=== PATIENT | male | born 2000 | race Caucasian/White ===

== ENCOUNTER 2019-11-05 16:00 | Emergency (ER) | payer BC, SELFPAY ==
[2019-11-05 16:10] VITALS: BP 123/76; PULSE 49; RESP 20; TEMP 36.6; O2SAT 100
--- NOTE | 2019-11-05 16:28 | ED.EAR ---
HPI - Ear Problem General Chief complaint: Ear Stated complaint: ringing in ear/clogged feeling Time Seen by Provider: 11/05/19 16:28 Source: patient and RN notes reviewed Mode of arrival: ambulatory Limitations: no limitations History of Present Illness HPI Narrative: 19 year old male who presents to main [facility] care with complaints of bilateral ears feeling full with decrease in hearing. Patient states that he just returned a few days ago from vacation in [place] where he swam a lot in the ocean. Patient states some discomfort in his right ear and ringing, denies any drainage from his ears. Patient states that he has tried some OTC ear drops with no resolution in his symptoms. MD Complaint: decreased hearing and other (ringing in his right ear) Location: bilateral Duration: constant Severity: mild Relieving factors: nothing Exacerbating factors: nothing Context: Reports recent swimming and other (vacation in [place]) Discharge from ear: Reports no Associated symptoms ear: decreased hearing Treatment prior to arrival: eardrops Related Data Allergies Allergy/AdvReac Type Severity Reaction Status Date / Time No Known Allergies Allergy Verified 11/05/19 16:16 Review of Systems Review of Systems: Narrative: CONSTITUTIONAL: Denies fever, chills, or sweats. EYES: Denies visual changes, redness, or discharge. ENT: Denies rhinorrhea, congestion, sore throat, positive for right ear pain and ringing and fullness, some fullness left ear no pain. CARDIOVASCULAR: Denies chest pain, palpitations, or edema. RESPIRATORY: Denies cough or dyspnea. GASTROINTESTINAL: Denies abdominal pain, nausea, vomiting, or diarrhea. GENITOURINARY: Denies dysuria or hematuria. SKIN: Denies rash or itching. MUSCULOSKELETAL: Denies back pain, joint pain, or myalgia. NEUROLOGIC: Denies headache, numbness, or weakness. PSYCHIATRIC: Denies anxiety or depression. All systems reviewed & are unremarkable except as noted in HPI and below PMFSH Past Medical History Medical History (Updated 11/06/19 @ 10:18 by Adriana Clark NP) Fractured nose Surgical History Surgical History (Updated 11/06/19 @ 10:20 by Adriana Clark NP) History of nasal surgery Hx of tonsillectomy Social History Social History (Updated 11/05/19 @ 16:49 by Adriana L. Amber, RELIABILITY ENGINEER) Smoking status: Never smoker Living arrangements: with roommate(s) Occupation/Education: student Gender identity (if verbalized by the patient): Male Comments At time of signature, agree with nursing past medical, surgical, social and family history. There is no relevant family history pertinent to the presenting complaint Exam Narrative: Exam Narrative: GENERAL: Well-appearing, well-nourished, and in no acute distress. HEAD: Normocephalic, atraumatic. EYES: PERRLA and EOMI. ENT: Nares clear, no rhinorrhea or epistaxis. Mucous membranes moist.Unable to visualize ear canals due to cerumen, ears washed using elephant and peroxide/water solution with moderate amount of soft wax obtained from bilateral ears,redness to ear canal right ear. TM's normal with good light reflex,throat pink with no lesions or tonsil enlargement. NECK: Supple.no lymphadenopathy CHEST: Clear to auscultation. No respiratory distress.SAO2 100% on room air HEART: Regular rate and rhythm. No murmur heard. Normal peripheral pulses. ABDOMEN: Soft, nontender, nondistended, normal active bowel sounds. EXTREMITIES: Normal range of motion. No edema. SKIN: Warm, dry, no rash. NEURO: No focal deficits. Alert and oriented x3. Course Vital Signs Vital signs: Vital Signs Temperature 36.6 C 11/05/19 16:10 Pulse Rate 49 L 11/05/19 16:10 Respiratory Rate 11/05/19 16:10 Blood Pressure 123/76 11/05/19 16:10 Pulse Oximetry 100 11/05/19 16:10 Temperature 36.6 C 11/05/19 16:10 Pulse Rate 49 L 11/05/19 16:10 Respiratory Rate 11/05/19 16:10 Blood Pressure 123/76 11/05/19 16:10 Pulse Oximetry 100
== END 2019-11-05 16:57 | disposition home or self-care (01) ==
PROVIDERS: Emergency Provider Registered Nurse
DX: H61.23 Impacted cerumen, bilateral (principal); H60.501 Unspecified acute noninfective otitis externa, right ear
CPT/HCPCS: 69209; 99213; A9270; G0463

== ENCOUNTER 2022-02-22 12:39 | Emergency (ER) | payer BC, SELFPAY ==
--- NOTE | 2022-02-22 12:42 | ED.URI ---
HPI - URI/Sore Throat General Chief Complaint: Upper Respiratory Infection Stated Complaint: Cough Time Seen by Provider: 02/22/22 12:42 Source: patient and RN notes reviewed History of Present Illness HPI Narrative: Patient is a 21-year-old male who presents to the Urgent Care with complaints of cough, sinus pressure and congestion for the last 2 weeks. Patient states he has had a sinuplasty which did treat most of his issues with sinusitis however he does have a strong history of ENT issues. Patient has not been on antibiotics for sinusitis and a very long time. Denies any recent fevers, nausea or vomiting. Patient has been using his fluticasone but otherwise nothing [id number]. No other acute complaints. No acute distress noted. Patient aware of the plan of care. Some parts of this dictation were generated by voice recognition software and may contain typographical and/or grammatical inaccuracies. Related Data Home Medications Medication Instructions Recorded Confirmed lisdexamfetamine 30 mg capsule 30 mg PO DAILY 02/22/22 02/22/22 (Vyvanse) Allergies Allergy/AdvReac Type Severity Reaction Status Date / Time No Known Allergies Allergy Verified 11/05/19 16:16 Review of Systems Review of Systems: CONSTITUTIONAL: Denies fever, chills, or sweats. EYES: Denies visual changes, redness, or discharge. ENT: Reports postnasal drainage, sinus congestion, sinus pressure CARDIOVASCULAR: Denies chest pain, palpitations, or edema. RESPIRATORY: reports of cough without dyspnea GASTROINTESTINAL: Denies abdominal pain, nausea, vomiting, or diarrhea. GENITOURINARY: Denies dysuria or hematuria. SKIN: Denies rash or itching. MUSCULOSKELETAL: Denies back pain, joint pain, or myalgia. NEUROLOGIC: Denies headache, numbness, or weakness. All other systems reviewed are negative, except as documented in HPI. [facility] Past Medical History Medical History (Updated 02/22/22 @ 12:59 by SEPIDEH Castillo) Fractured nose Surgical History Surgical History (Updated 02/22/22 @ 12:59 by SEPIDEH Castillo) History of nasal surgery Hx of tonsillectomy Social History Social History (Updated 11/05/19 @ 16:49 by Adriana Clark NP) Smoking status: Never smoker Gender identity (if verbalized by the patient): Male Comments At the time of my signature, I reviewed and agree with the nursing past medical, surgical, social, and family history. There is no relevant family history pertinent to the patient complaint. Exam Narrative: GENERAL: This is a well-nourished, well-developed patient, in no apparent distress. HEAD: normocephalic, atraumatic. frontal sinus tenderness EYES: PERRL. Sclera clear/white. Vision is grossly intact. EARS: External ears normal, auditory canals clear and without drainage, TMs normal without perforation. Hearing grossly intact. NOSE: External nose normal with no obvious nasal discharge. Bilateral erythema nares with clear yellow rhinorrhea THROAT: Mucous membranes moist, moderate postnasal drainage NECK: Neck supple, non-tender without lymphadenopathy CARDIOVASCULAR: Regular rate and rhythm without murmurs, gallops, or rubs. RESPIRATORY: Clear to auscultation. Breath sounds equal bilaterally. No wheezes, rales, or rhonchi. SKIN: warm, intact with no suspicious lesions or rash, good texture and turgor. NEURO: awake, alert, and oriented to person, place and time. There were no obvious focal neurologic abnormalities. EXTREMITIES: No clubbing, cyanosis, or edema. Course Course Level of Care: Express Care Visit Vital Signs Vital signs: Vital Signs Temperature 98.2 F 02/22/22 12:48 Pulse Rate 55 L 02/22/22 12:48 Respiratory Rate 16 02/22/22 12:48 Blood Pressure 139/74 02/22/22 12:48 Pulse Oximetry 100 02/22/22 12:48 Oxygen Delivery Room Air 02/22/22 12:48 Temperature 98.2 F 02/22/22 12:48 Pulse Rate 55 L 02/22/22 12:48 Respiratory Rate 16
[2022-02-22 12:48] VITALS: BP 139/74; PULSE 55; RESP 16; TEMP 36.8; O2SAT 100
== END 2022-02-22 13:00 | disposition home or self-care (01) ==
PROVIDERS: Emergency Provider Nurse Practitioner Family
DX: J32.9 Chronic sinusitis, unspecified (principal)
CPT/HCPCS: 99213; G0463

== ENCOUNTER 2025-01-19 09:53 | Emergency (ER) | payer BC, SELFPAY ==
[2025-01-19 10:06] VITALS: BP 151/88; PULSE 74; RESP 18; TEMP 36.9; O2SAT 100
--- OUTSIDE RECORDS SUMMARY | 2025-01-19 11:03 | XMS_ITS | Encounter Summary ---
Author Organization [facility] Address [address] [place] [address] Phone Care Team Providers Care Mrp Controller Name Role Phone Alexander Vicente MD Primary Care Provider [phone] Alexander Vicente MD Unavailable [phone] Jagruti Mattson APRN, ELECTRONIC PUBLISHING SPECIALIST Unavailable [phone] Reason for Visit * Reason Onset Date Comments Prior Authorization 07/03/2024 Auth Denied- P2P offeredOrdering Provider: InternalIf external office contacted, phone number called: Spoke to: Appointment Info:Clinic: [facility] Provider: [facility] Appt Date/Time: Saturday 7:30 PM Payor + Plan: [place] [facility] PPOCPT/Test: 16701 / [id number] denied through: [employer] Reason for denial: Add'l Steps Taken (Pt Notified, Reached out to Provider, et Encounter Details Date Type Department Care Team (Late st Contact Info) Description 07/03/2024 Telephone [facility] Outpatient [address] [place] [address] Boogie Monique, NILAM, ELECTRONIC PUBLISHING SPECIALIST #[address] [address] Prior Authorization (Auth Denied-P2P offered//Ordering Provider: Internal/If external office contacted, phone number called: /Spoke to: //Appointment Info:/Clinic: [facility] /Provider: [facility] Appt Date/Time: Saturday 7:30 PM/ / //[place] + [place]//CPT/Test: 49048 / 36041/Authorization denied through: [employer]ILITY //Reason for denial: //Add'l Steps Taken (Pt Notified, Reached out to Provider, et) Social History Tobacco Use Types Packs/Day Years Used Date Smoking Tobacco: Never Smokeless Tobacco: Never Alcohol Use Standard Drinks/Week Comments Yes 7 (1 standard drink = 0.6 oz pur e alcohol) weekends PHQ-2 Answer Date Recorded Total Score - Questions 1-9 0 03/2023 Sexually Active Control Partners Comments Yes None Female Sex and Gender Information Value Date Recorded Sex Assigned at Not on file Legal Sex Male 2:13 PM CDT Gender Identity Not on file Sexual Orientation Not on file documented as of this encounter Miscellaneous Notes * Telephone Encounter - Daniella Brice RN - 07/03/2024 11:25 AM CDT Referral pend * Telephone Encounter - Larissa Montoya - 07/03/2024 9:53 AM CDT Images from the original note were not included. Auth Denied-P2P offered Ordering Provider: Internal If external office contacted, phone number called: Spoke to: Appointment Info: Clinic: [facility] Provider: [facility] Appt Date/Time: Saturday 7:30 PM [place] CPT/Test: 13270 / 71913 Authorization denied through: [employer] Reason for denial: Add'l Steps Taken (Pt Notified, Reached out to Provider, etc.): SENT TE TO PROVIDER AND NURSE POOL Peer to Peer review offered by Payer: Yes Peer to Peer review expires: Case #: [id number] Phone #: [phone] Ordering Provider: Boogie Monique APRN, CNP Phys. Notified? Yes Note for ordering office: If patient wishes to cancel the appointment, please complete cancellationprocess from the patient's appointment desk. Notification Made to Patient: No If no, provide reason: P2P documented in this encounter Plan of Treatment Not on file documented as of this encounter Visit Diagnoses Not on filedocumented in this encounter Additional Health Concerns Assessment Noted Time PHQ-9 Depression Total Score: 0 01/24/20 1:08 PM CDT documented as of this encounter Care Teams Mrp Controller Relationship Specialty Start Date End Date Alexander Vicente MD #2 [facility] [address] [place] [address] PCP - General Family Medicine 01/15/24 Alexander Vicente MD #2 [facility] [address] [place] [address] Family Medicine 01/15/24 Jagruti Mattson APRN, ELECTRONIC PUBLISHING SPECIALIST #2 [facility] [address] [place] [address] Nurse Practitioner Advanced Practice Nurse 08/24/24 documented as of this encounter
--- OUTSIDE RECORDS SUMMARY | 2025-01-19 11:03 | XMS_ITS | Clinical Summary ---
Author Organization [facility] Address [address] [place] [address] Phone Care Team Providers Care Processing Technologist Name Role Phone Alexander Vicente MD Primary Care Provider [phone] Alexander Vicente MD Unavailable [phone] Jagruti Mattson APRN, SERVER SECURITY ADMINISTRATOR Unavailable [phone] Allergies No known active allergies Medications amphetamine-dextr oamphetamine (Adderall XR) 10 MG CAPSULE SR 24 HRIndications:Att ention deficit hyperactivity disorder (ADHD), predominantly inattentive type Take 1 Capsule by mouth every morning. 30 Capsule 5 Active amphetamine-dextr oamphetamine (Adderall XR) 10 MG CAPSULE SR 24 HRIndications:Att ention deficit hyperactivity disorder (ADHD), predominantly inattentive type Take 1 Capsule by mouth every morning. 30 Capsule 5 12/24/19 25 Discontinu ed(Reorder ) Active Problems Problem Noted Date Diagnosed Date ANDI (obstructive sleep apnea) 08/25/2024 Excessive daytime sleepiness 08/25/2024 Encounters Date Type Department Care Team Description 01/05/2025 Results Follow-Up [facility] - Pulmonology & Sleep Medicine - [place] [address] [place] [address] Jagruti Mattson APRN, SERVER SECURITY ADMINISTRATOR POLYSOMNOGRAPHY 4 OR MORE PARAMETERS 12/29/2024 7:30 PM CDT Sleep Lab [facility] [address] [place] [address] Jagruti Mattson APRN, CNP Obstructive sleep apnea Discharge Disposition: Discharged to home or Selfcare 12/29/2024 Travel 12/23/2024 MyChart RX Renewal [facility] [address] [place] [address] Alexander Vicente MD Medication Renewal Reviewed 12/11/2024 Transcribe Orders [facility] [address] [place] [address] Jagruti Mattson APRN, CNP Obstructive sleep apnea (Primary Dx) 11/25/2024 10:00 AM CDT Office Visit [facility] - [place] [address] [place] [address] Jagruti Mattson APRN, CNP ANDI (obstructive sleep apnea) (Primary Dx) Discharge Disposition: Discharged to home or Selfcare 11/24/2024 8:00 AM CDT Office Visit [facility] [address] [place] [address] Alexander Vicente MD Attention deficit hyperactivity disorder (ADHD), predominantly inattentive type (Primary Dx); ANDI (obstructive sleep apnea); Encounter for long-term (current) use of medications Discharge Disposition: Discharged to home or Selfcare 11/24/2024 Travel 11/12/2024 MyChart RX Renewal [facility] [address] [place] [address] Sihra Decker APRN, CNP Medication Renewal Declined from Last 3 Months Immunizations Immunization Administration Dates Next Due Human Papillomavirus (HPV) 9-valent Vaccine 05/23 Human Papillomavirus Vaccine (HPV), quadrivalent 10/04/2017 Influenza Vaccine, Quadrivalent, PF 02/12/2020 Meningococcal Vaccine 11/08/2016 TDAP Vaccine 10/13/2021 Social History Tobacco Use Types Packs/Day Years Used Date Smoking Tobacco: Never Smokeless Tobacco: Never Tobacco Cessation:Counseling Given: Not Answered Alcohol Use Standard Drinks/Week Comments Yes 7 (1 standard drink = 0.6 oz pur e alcohol) weekends PHQ-2 Answer Date Recorded Total Score - Questions 1-9 0 04/2024 Sexually Active Control Partners Comments Yes None Female Sex and Gender Information Value Date Recorded Sex Assigned at Not on file Legal Sex Male 2:13 PM CDT Gender Identity Not on file Sexual Orientation Not on file Last Filed Vital Signs Vital Sign Reading Time Taken Comments Blood Pressure 140/72 11/25/2024 10:18 AM CDT Pulse 61 11/25/2024 10:18 AM CDT Temperature 37.1 C (98.7 F) 11/25/2024 10:18 AM CDT Respiratory Rate 16 11/25/2024 10:18 AM CDT Oxygen Saturation 97% 11/25/2024 10:18 AM CDT Inhaled Oxygen Concentration - - Weight 86.3 kg (190 lb 3.2 oz) 11/25/2024 10:18 AM CDT Height 177.8 cm (5' 10) 11/25/2024 10:18 AM CDT Body Mass Index 27.29 11/25/2024 10:18 AM CDT Plan of Treatment Health Maintenance Due Date Last Done Comments Hepatitis C Virus (HCV) Screening 1999 Human Papillomavirus (HPV) Immunization (3 - Male 3-dose series) 12/27/2017 10/04/2017, 06/04/2017 Hepatitis B Immunization (1 of 3 - 19+ 3-dose series) 10/22/2018 Influenza Immunization (#1) 2024 02/12/2020 SARS-COV-2 Immunization (3 - 2024- season) 2024 08/05/2020, 07/13/2020 Td Immunization Every 10 Yea rs (Adults With 1 Tdap) 10/14/2031 10/13/2021 Respiratory Syncytial Virus (RSV) Immunization (Adult) (1 - 1-dose 75+ series) 10/22/2074 Meningococcal Immunization (ACWY) Completed 11/08/2016 DTaP/Tdap/Td Immunization Discontinued 10/13/2021 Pneumococcal Immunization Combined Aged Out No longer eligible based on patient's age to complete this topic Rotavirus Immunization Aged Out No lo nger eligible based on patient's age to complete this topic Procedures Procedure Name Priority Date/Time Associated Diagnosis Comments POLYSOMNOGRAPHY 4 OR MORE PARAMETERS Routine 12/30/2024 Obstructive sleep apnea URINE DRUG SCREEN Routine 11/24/2024 Encounter for long-term (current) use of medications from Last 3 Months Results * POLYSOMNOGRAPHY 4 OR MORE PARAMETERS (12/30/2024) Jagruti Mattson APRN [facility] ORDERABL ES Final Result * URINE DRUG SCREEN (11/24/2024) Urine 11/24/2024 Alexander Vicente MD URINE ORDERABLES Final Result from Last 3 Months Insurance [facility] Care Teams Processing Technologist Relationship Specialty Start Date End Date Alexander Vicente MD #2 [facility] [address] [place] [address] PCP - General Family Medicine 01/15/24 Alexander Vicente MD #2 [facility] [address] [place] [address] Family Medicine 01/15/24 Jagruti Mattson APRN, SERVER SECURITY ADMINISTRATOR #2 [facility] [address] [place] [address] Nurse Practitioner Advanced Practice Nurse 08/24/24
--- OUTSIDE RECORDS SUMMARY | 2025-01-19 11:03 | XMS_ITS | Encounter Summary ---
Author Organization [facility] Address [address] [place] [address] Phone Care Team Providers Care Storekeeper Engineering Name Role Phone Alexander Vicente MD Primary Care Provider Alexander Vicente MD Unavailable [phone] Jagruti Mattson APRN, CNP Unavailable [phone] Encounter Details Date Type Department Care Team (Latest Contact Info) Description 01/05/2025 Results Follow-Up [facility] - Pulmonology & Sleep Medicine [facility] [address] [place] [id number] Jagruti Mattson APRN, TAKE AWAY ATTENDANT #[address] [address] POLYSOMNOGRAPHY 4 OR MORE PARAMETERS Social History Tobacco Use Types Packs/Day Years Used Date Smoking Tobacco: Never Smokeless Tobacco: Never Alcohol Use Standard Drinks/Week Comments Yes 7 (1 standard drink = 0.6 oz pur e alcohol) weekends PHQ-2 Answer Date Recorded Total Score - Questions 1-9 0 09/04/2024 Sexually Active Control Partners Comments Yes None Female Sex and Gender Information Value Date Recorded Sex Assigned at Not on file Legal Sex Male 2:13 PM CDT Gender Identity Not on file Sexual Orientation Not on file documented as of this encounter Plan of Treatment Not on file documented as of this encounter Visit Diagnoses Not on filedocumented in this encounter Additional Health Concerns Assessment Noted Time PHQ-9 Depression Total Score: 0 11/25/19 25 8:02 AM CDT documented as of this encounter Care Teams Storekeeper Engineering Relationship Specialty Start Date End Date Alexander Vicente MD #2 [facility] [address] [place] [address] PCP - General Family Medicine 01/15/24 Alexander Vicente MD #2 [facility] [address] [place] [address] Family Medicine 01/15/24 Jagruti Mattson APRN, ANEESH #2 [facility] [address] [place] [address] Nurse Practitioner Advanced Practice Nurse 08/24/24 documented as of this encounter
--- NOTE | 2025-01-19 18:55 | ED_ITS ---
HPI - URI/Sore Throat General Chief Complaint: Upper Respiratory Infection Stated Complaint: Cough Time Seen by Provider: 01/19/25 10:15 Source: patient and RN notes reviewed Mode of arrival: ambulatory Limitations: no limitations History of Present Illness HPI Narrative: 24-year-old male patient presents to the [facility] complaining of upper respiratory symptoms for 10 days. Patient reports sinus pressure, mucopurulent nasal drainage, cough, congestion, body aches. Patient denies any other upper respiratory symptoms, fevers, nausea vomiting, diarrhea, chest pain, difficulty breathing every other symptoms. Patient symptoms have not gotten any better the last 10 days. Patient denies any significant past medical problems. Related Data Home Medications ?Medication ?Instructions ?Recorded ?Confirmed ?Last Taken ?Type dextroamphetamine-amphetamine ER PO 01/19/25 Unknown History 10 mg 24hr capsule,extend release Allergies Allergy/AdvReac Type Severity Reaction Status Date / Time No Known Allergies Allergy Verified 01/19/25 10:05 Review of Systems Review of Systems: CONSTITUTIONAL: Denies fever, chills, or sweats. Positive for body aches. EYES: Denies visual changes, redness, or discharge. ENT: Positive for congestion, sinus pressure,. Negative for rhinorrhea, sore throat, or otalgia. CARDIOVASCULAR: Denies chest pain, palpitations, or edema. RESPIRATORY: Positive for cough. Negative for dyspnea. GASTROINTESTINAL: Denies abdominal pain, nausea, vomiting, or diarrhea. GENITOURINARY: Denies dysuria or hematuria. SKIN: Denies rash or itching. MUSCULOSKELETAL: Denies back pain, joint pain, or myalgia. NEUROLOGIC: Denies headache, numbness, or weakness. PSYCHIATRIC: Denies anxiety or depression. All other systems reviewed are negative, except as documented in HPI. [facility] Past Medical History Medical History Fractured nose Surgical History Surgical History History of nasal surgery Hx of tonsillectomy Social History Social History Smoking status: Never smoker Living arrangements: with roommate(s) Occupation/Education: student Gender identity (if verbalized by the patient): Male Comments At the time of my signature, I reviewed and agree with the nursing past medical, surgical, social, and family history. There is no relevant family history pertinent to the patient complaint. Exam Narrative: GENERAL: This is a well-nourished, well-developed adult, in no apparent distress. They are non ill-appearing, nontoxic appearing. HEAD: normocephalic, atraumatic. EYES: Sclera clear/white. Vision is grossly intact. Conjunctiva normal bilaterally. Extraocular movements intact. EARS: External ears normal, auditory canals clear and without drainage, TMs without erythema or perforation. Hearing grossly intact. NOSE: External nose normal with no obvious nasal discharge, nasal turbinates erythematous, no rhinorrhea. Maxillary or frontal sinus tenderness to palpation. THROAT: Mucous membranes moist, posterior pharynx erythematous without exudate. Uvula is midline. Postnasal drip present. NECK: Neck supple, non-tender without lymphadenopathy, masses or thyromegaly. CARDIOVASCULAR: Regular rate and rhythm without murmurs, gallops, or rubs. RESPIRATORY: Clear to auscultation. Breath sounds equal bilaterally. No wheezes, rales, or rhonchi. SKIN: warm, Dry, intact with no suspicious lesions or rash, good texture and turgor. NEURO: awake, alert, and oriented to person, place and time. There were no obvious focal neurologic abnormalities. EXTREMITIES: No joint tenderness, effusion, or edema noted. BACK: Nontender without deformity. Course Course Emergency Course: Portions of this record may have been created with voice recognition software Level of Care: Express Care Visit Vital Signs Vital signs: Vital Signs Temperature 98.5 F 01/19/25 10:06 Pulse Rate 74 01/19/25 10:06 Respiratory Rate 18 01/19/25 10:06 Blood Pressure 151/88 H 01/19/25 10:06 Pulse Oximetry 100 01/19/25 10:06 Oxygen Delivery Room Air 01/19/25 10:06 Temperature 98.5 F 01/19/25 10:06 Pulse Rate 74 01/19/25 10:06 Respiratory Rate 18 01/19/25 10:06 Blood Pressure 151/88 H 01/19/25 10:06 Pulse Oximetry 100 01/19/25 10:06 Oxygen Delivery Room Air 01/19/25 10:06 MDM - URI/Sore Throat MDM Narrative Medical decision making narrative: Given patient's length of symptoms likely a bacterial sinusitis. Will treat wit h Augmentin. Discussed physical exam findings. Advised supportive measures and signs/symptoms to go to the ER. Pt is appropriate for outpt treatment and f/u. Differential Diagnosis Differential diagnosis: Likely upper respiratory infection, sinusitis, viral infection and pharyngitis Discharge Plan Discharge Clinical Impression: Sinusitis Patient Disposition: Home Condition: Stable Instructions: Antibiotic Form, Sinusitis (ED) Additional Instructions: Take the antibiotics as directed and complete the course even if you start to feel better. You may use a Neti pot saline rinse 3 times a day with lukewarm distilled water Continue to take Tylenol or Motrin as needed for pain or fevers. Follow instructions on the bottle. Use a humidifier or vaporizer at night. Drink plenty of water. 8-10 glasses per day. Use flonase 2 times per day for 5 days then as needed Take mucinex 2 times per day and be sure to take with 8oz of water. Follow up with Primary provider in 3-5 days Please go to the ER if he develops any difficulty breathing, worsening symptoms, or any other concerns Patient Language: Occitan Prescriptions: New amoxicillin-pot clavulanate 875-125 mg tablet 1 tablet PO Q12H 7 Days Qty: 14 0RF No Action dextroamphetamine-amphetamine 10 mg capsule,extended release 24hr PO Follow-up/Referrals: Jules,Alexander Bowser MD [Primary Care Provider] Time of Disposition: 10:32
== END 2025-01-19 10:37 | disposition home or self-care (01) ==
PROVIDERS: PCP Internal Medicine
DX: J32.9 Chronic sinusitis, unspecified (principal)
CPT/HCPCS: 99213; G0463